=== PATIENT | male | born 1990 | race Caucasian/White ===

== ENCOUNTER 2018-12-23 02:28 | Inpatient (IN) | payer MEDICAID ==
[~2018-12-23] VITALS: Ht 185.4 cm; Wt 81.6 kg
--- NOTE | 2018-12-23 02:37 | NUR ---
PT BIBGIRLFRIEND FROM HOME POSSIBLE OD ON LAMICTAL AND SEROQUEL, UNKNOWN AMOUNT, UNKNOWN TIME. -SI, AAOX4. +ETOH. NAD NOTED. RESP EVEN AND UNLABORED. LETHARGIC. PT ON MONITOR IN BED 8 WITH GIRLFRIEND AT BEDSIDE. WILL CONTINUE TO MONITOR.
--- NOTE | 2018-12-23 02:38 | NUR ---
BLOOD DRAWN AND GIVEN TO LAB
--- NOTE | 2018-12-23 02:40 | NUR ---
TECH AT BEDSIDE FOR EKG
--- NOTE | 2018-12-23 02:51 | NUR ---
Poison Control called spoke with Bala. Recommends seizure precautions, tylenol, asa and bmp. Watch for hypotension, tachycardia, blood bank laboratory technician depression, seizures. Recommends minimum 6 hr observation time.
[2018-12-23] MEDS ORDERED: ONDANSETRON HCL/PF 4 MG/2 ML VIAL ONE (02:54)
[2018-12-23] MEDS ORDERED: ONDANSETRON HCL/PF - ER 4 MG/2 ML VIAL IV ONE (03:00)
[2018-12-23] MEDS ORDERED: IV NS 0.9% 1,000 ML BAG IV ONE (03:00)
[2018-12-23 03:03] LABS: BASOPHILS % (AUTO) 0.6 % (0.0-2.0); EOSINOPHILS % (AUTO) 7.7 % (0.0-6.0); HEMATOCRIT 39 % (39-51); HEMOGLOBIN 13.7 g/dL (13.5-17.5); LYMPHOCYTES % (AUTO) 57.2 % (20.0-44.0); MEAN CORPUSCULAR HGB CONC 35 g/dl (31.0-36.0); MEAN CORPUSCULAR VOLUME 91 fL (80-96); MONOCYTES # (AUTO) 0.4 /CMM (0.1-1.30); MONOCYTES % (AUTO) 5.6 % (2.0-12.0); NEUTROPHILS % (AUTO) 28.9 % (43.0-81.0); PLATELET COUNT (AUTO) 239 /CMM (150-450); RED BLOOD CELL COUNT(AUTO) 4.33 MIL/uL (4.5-6.0)
[2018-12-23 03:28] LABS: ALBUMIN 3.7 g/dL (3.4-5.0); BILIRUBIN,DIRECT 0.1 mg/dL (0.0-0.2); BILIRUBIN,TOTAL 0.3 mg/dL (0.2-1.0); CALCIUM, SERUM 8.8 mg/dL (8.5-10.1); POTASSIUM 3.2 mmol/L (3.5-5.1); SALICYLATE 3.5 mg/dL (2.8-20.0); TOTAL PROTEIN, SERUM 6.8 g/dL (6.4-8.2)
[2018-12-23] MEDS ORDERED: POTASSIUM CHLORIDE 20 MEQ TAB.PRT.SR PO ONE (04:30)
[2018-12-23 04:56] LABS: APPEARANCE,URINE Clear (CLEAR); BILIRUBIN,URINE Negative (NEGATIVE); BLOOD, URINE Small Ery/uL (NEGATIVE); COLOR,URINE Yellow (YELLOW); KETONES,URINE Trace (NEGATIVE); LEUKOCYTE ESTERASE ,URINE Negative (NEGATIVE); NITRITE, URINE Negative (NEGATIVE); PH,URINE 5.5 (5.0-8.0); PROTEIN,URINE 30 mg/dl (NEGATIVE); UGLUCOSE Negative (NEGATIVE); UROBILINOGEN,URINE 0.2 EU/dL (0.2)
[2018-12-23 05:13] LABS: BACTERIA,URINE Moderate /HPF (None Seen); RBC,URINE 0-2 /HPF (0-2); SQUAMOUS EPITHELIAL CELL,UR Rare /HPF (None Seen)
--- NOTE | 2018-12-23 05:15 | NUR ---
Patient is resting comfortably in bed with eyes closed. VSS. GIRLFRIEND AT BEDSIDE.
[2018-12-23] MEDS ORDERED: ONDANSETRON HCL/PF 4 MG/2 ML VIAL IVP PRN (05:30)
[2018-12-23] MEDS ORDERED: MORPHINE SULFATE INJ 2 MG/ML DISP.SYRIN IV PRN (05:30)
[2018-12-23 05:48] LABS: MAGNESIUM 2.2 mg/dL (1.8-2.4); PHOSPHORUS 5.1 mg/dL (2.5-4.9)
--- NOTE | 2018-12-23 06:04 | NUR ---
REPORT GIVEN TO SUHAIL FITZGERALD FOR DARÍO
[2018-12-23] MEDS: POTASSIUM CL. PREMIX PERIPHER. 50 ML IV SCH ×4 (06:07→12:16)
--- NOTE | 2018-12-23 06:45 | NUR ---
MS/RN RECEIVE PATIENT FROM E.. AROUND 0620 VIA Hepa Wash, PATIENT WAS SLEEPING, APPEAR COMFORTABLE, NO SIGNS OF DISTRESS NOTED, VITAL SIGNS:BP 128/75, HR 120, RR 18, T 97.6, O2 SAT ON RA 95 %, SR ON TELE. WILL ENDORSE TO NEXT RN FOR CONTINUITY OF
[2018-12-23 08:00] VITALS: BP 128/75
--- NOTE | 2018-12-23 08:00 | NUR ---
MS RN OPENING NOTES Received Patient comfortable and asleep in bed with girlfriend at bedside. A/O x 4. VS stable with no acute distress. Breathing even and unlabored on room air with no respiratory distress. No signs and symptoms of pain. Skin intact. 18g PIV on RAC clean, dry, intact and flushing well. IVF NS running at 100ml/hr. Safety precautions in place. Bed locked and set to lowest position. Will continue to monitor. Addendum: 12/23/18 at 0945 by LEWIS NUNEZ RN DIRECT MAIL COORDINATOR OPENING NOTES Telemonitor in place and operational. SR. HR-94.
[2018-12-23] MEDS ORDERED: PANTOPRAZOLE 40 MG VIAL IV SCH (09:00)
[2018-12-23] MEDS: IV NS 0.9% 1,000 ML IV PRN ×2 (09:01→20:45)
[2018-12-23] MEDS ORDERED: LAMO25TA10 PO (09:22)
[2018-12-23] MEDS ORDERED: QUET200T PO (09:22)
--- NOTE | 2018-12-23 10:30 | NUR ---
MS RN NOTES Telemonitor discontinued. Patient asleep with no acute distress. Girlfriend at bedside. Will continue to monitor.
--- NOTE | 2018-12-23 14:56 | NUR ---
Social service consult requested Dr. Suero for Overdose. Pt. is a 28 year old male who was admitted to [facility] for altered mental status. Per Dr. Suero's H&P report pt. lives with his girlfriend Nano who stated that pt. got the prescription filled for Seroquel and Lamictal yesterday. Pt. had taken one pill of each at 12 AM. However, at about 2:30 AM he woke Nano up and was pacing in the house. When Nano checked the pill bottles, they were both empty and one bottle was filled with pt. Nano informed the doctor that pt. was sleepwalking. SW met with pt's girlfriend Nano bedside. Pt. is still lethargic and unable to provide any meaningful information. Pt. is alert and oriented x 1. Per Nano, pt. and herself are from [place], [place]. Pt. moved to [facility] since August and lives with Nano. Pt's has a brother named Morris that lives in [facility] and his parents reside in [place]. Both parents are flying from [place] to come visit the patient this evening. Nano informed SW that this incident has never happened before. Pt. has no history of suicidal ideations or attempts. Pt. has a diagnosis of Bipolar I and takes Lamictal and Seroquel. According to Nano, they both went to [employer] and had several alcoholic drinks and came home. Per Nano, pt. does do use drugs. Pt. smokes 1/2 pack of cigarettes per day. Pt. is unemployed at this time. SW to assess pt. when he is more alert and oriented and able to provide information.
[2018-12-23 16:00] VITALS: BP 105/58
--- NOTE | 2018-12-23 19:31 | NUR ---
MS RN RECEIVE PT ASLEEP AND EASILY AWAKEN, OPENS EYES TO NAME, RESPIRATIONS EVEN AND UNLABORED, SAFETY MEASURES IN PLACE. WILL CONTINUE TO MONITOR.
--- NOTE | 2018-12-23 19:34 | NUR ---
MS RN CLOSING NOTES Patient comfortable and asleep in bed with girlfriend at bedside. A/O x 1-2. VS stable with no acute distress. Breathing even and unlabored on room air with no respiratory distress. No signs and symptoms of pain. Skin intact. 18g PIV on RAC clean, dry, intact and flushing well. IVF NS running at 100ml/hr. Safety precautions in place. Bed locked and set to lowest position. All needs rendered at this time. Will endorse plan of care to oncoming shift.
[2018-12-23 20:00] VITALS: BP 107/55
--- NOTE | 2018-12-24 01:00 | NUR ---
Pt appears comfortable no s/s of distress asleep and easily awaken
--- NOTE | 2018-12-24 04:00 | NUR ---
Pt more alert to self and place re oriented pt. pt no s/s distress.
--- NOTE | 2018-12-24 06:16 | NUR ---
MS RN ASLEEP AND EASILY AWAKEN, TOLERATING ROOM AIR 99%. PT ALERT TO SELF, PLACE. RE ORIENT PT AT TIMES. RESPIRATION EVEN AND UNLABORED, MOTHER AT BEDSIDE, NEEDS ATTENDED AND ANTICIPATED, KEPT CLEAN AND DRY AND COMFORTABLE. NURSING CARE RENDERED, NO COMPLAIN OF PAIN, SAFETY MEASURES AT ALL TIMES. ENDORSE TO THE NEXT SHIFT. Addendum: 12/24/18 at 0618 by AMANDA ROSARIO RN MAINTAINS NPO THROUGHOUT THE SHIFT
[2018-12-24] MEDS: IV NS 0.9% 1,000 ML IV PRN (06:22)
[2018-12-24 06:28] LABS: BASOPHILS % (AUTO) 0.4 % (0.0-2.0); EOSINOPHILS % (AUTO) 5.3 % (0.0-6.0); HEMATOCRIT 39 % (39-51); HEMOGLOBIN 13.4 g/dL (13.5-17.5); LYMPHOCYTES # (AUTO) 1.9 /CMM (0.8-4.8); LYMPHOCYTES % (AUTO) 25.3 % (20.0-44.0); MEAN CORPUSCULAR HGB CONC 34 g/dl (31.0-36.0); MEAN CORPUSCULAR VOLUME 92 fL (80-96); MONOCYTES # (AUTO) 0.4 /CMM (0.1-1.30); MONOCYTES % (AUTO) 5.7 % (2.0-12.0); NEUTROPHILS # (AUTO) 4.8 /CMM (1.8-8.9); NEUTROPHILS % (AUTO) 63.3 % (43.0-81.0); PLATELET COUNT (AUTO) 221 /CMM (150-450); WHITE BLOOD COUNT (AUTO) 7.7 K/uL (4.3-11.0)
[2018-12-24 06:55] LABS: ALBUMIN 3.3 g/dL (3.4-5.0); BILIRUBIN,TOTAL 0.9 mg/dL (0.2-1.0); CALCIUM, SERUM 8.2 mg/dL (8.5-10.1); POTASSIUM 3.7 mmol/L (3.5-5.1); TOTAL PROTEIN, SERUM 6.3 g/dL (6.4-8.2)
--- NOTE | 2018-12-24 07:32 | NUR ---
MS RN OPENING NOTES Patient received on room air, no sob noted. Patient a/o x4. patient denies pain at this time. Patient's bed at the lowest setting, call light within reach.
[2018-12-24 07:45] VITALS: BP 106/71
--- NOTE | 2018-12-24 12:23 | NUR ---
RN MS DISCHARGE NOTES Patient discharged at this time. Patients vital signs stable, no sob noted. Patient denies pain. Patient able to walk with good gait. Patient's paperwork signed. Patient understands discharge instructions. Patient has all the items he came here with, clothes and cellphone. Patient's IV and name tag taken out. Patient went home with parents and partner.
[2018-12-25] MEDS ORDERED: FAMOTIDINE/PF INJ 20 MG/2 ML VIAL IV SCH (09:00)
== END 2018-12-24 12:14 | disposition home or self-care (01) | DRG 812 ==
LOC: ER 02:28 → TELE 05:41 → MED 08:58
DX: T43.591A Poisoning by other antipsychotics and neuroleptics, accidental (unintentional), initial encounter (principal); G92 Toxic encephalopathy; E86.0 Dehydration; Y92.009 Unspecified place in unspecified non-institutional (private) residence as the place of occurrence of the external cause; E87.6 Hypokalemia; F17.200 Nicotine dependence, unspecified, uncomplicated
CPT/HCPCS: 36415; 80048-TC; 80053-TC; 80061-TC; 80076-TC; 80305; 81000-TC; 82962-TC; 83735-TC; 84100-TC; 85025-TC; 87081-TC; 87086-TC; C9113; G0378; G0480; J2405; J3480; J7030